=== PATIENT | male | born 1965 | race Caucasian/White ===

== ENCOUNTER → 2021-05-15 | Outpatient (CLI) | payer OTHER ==
[~2021-05-15] MED LIST: CETIRIZINE HCL10 MG PO; LIPITOR TAB 1010 MG PO; REMICADE I100 MG/VIA IV; SYNTHROID25 MCG PO
== END ==
LOC: LBRF 15:54
DX: R31.29 Other microscopic hematuria (principal)
CPT/HCPCS: 81001

== ENCOUNTER → 2021-05-30 | Outpatient (CLI) | payer OTHER | LOC: CT 10:29 | DX: R10.9 Unspecified abdominal pain (principal); R31.29 Other microscopic hematuria; C61 Malignant neoplasm of prostate; N50.82 Scrotal pain; Z87.442 Personal history of urinary calculi; N43.3 Hydrocele, unspecified; K57.30 Diverticulosis of large intestine without perforation or abscess without bleeding | CPT/HCPCS: 76870; Q9967 ==